=== PATIENT | male | born 1990 | race Caucasian/White ===

== ENCOUNTER 2017-06-23 10:14 | Emergency (ER) | payer MEDICAID ==
[~2017-06-23] VITALS: Ht 175.3 cm; Wt 120.0 kg
[~2017-06-23 10:14] MED LIST: ARIP5TAB6 PO; FLUO20CA19; LITH300C
[2017-06-23] MEDS ORDERED: SODIUM CHLORIDE 0.9% 1,000ML IVBOLUS ONE ×2 (10:30→22:30)
[2017-06-23 10:53] LABS: ASPARTATE AMINO TRANSFERASE 26 U/L (15-37); BLOOD UREA NITROGEN 14 mg/dL (7-18)
[2017-06-23 11:00] LABS: ACETAMINOPHEN < 2 mcg/mL (10-30)
[2017-06-23 12:06] LABS: DAU SCREEN DISCLAIMER
[2017-06-23] MEDS ORDERED: ARIP10TA13 PO (13:17)
[2017-06-23] MEDS ORDERED: LITH450T PO (13:17)
[2017-06-23] MEDS ORDERED: ZIPRASIDONE 20 MG INJ IM ONE (14:00)
[2017-06-23] MEDS ORDERED: LORazepam 1MG TABLET PO PRN (18:00)
[2017-06-23] MEDS ORDERED: OLANZAPINE 10 MG INJ IM PRN (18:00)
[2017-06-23] MEDS ORDERED: LORazepam 2 MG/ML, 1ML IM PRN (18:00)
[2017-06-23] MEDS ORDERED: LORazepam 1MG TABLET ONE (18:14)
[2017-06-23] MEDS ORDERED: LORazepam 0.5MG TABLET ONE (20:30)
[2017-06-23] MEDS ORDERED: ZIPRASIDONE 20MG CAPSULE ONE (20:30)
[2017-06-23] MEDS: ZIPRASIDONE 20MG CAPSULE PO SCH (20:33)
[2017-06-23] MEDS: LORazepam 0.5MG TABLET PO SCH (20:33)
[2017-06-23] MEDS ORDERED: LORazepam 2 MG/ML, 1ML IVPush ONE (22:30)
[2017-06-23] MEDS ORDERED: LORazepam 2 MG/ML, 1ML ONE (23:27)
[2017-06-24 00:11] VITALS: BP 164/99
[2017-06-24] MEDS ORDERED: LITHIUM CARBONATE 300 MG CAPSULE PO ONE (09:00)
[2017-06-24] MEDS: LORazepam 0.5MG TABLET PO SCH (09:36)
[2017-06-24] MEDS: ZIPRASIDONE 20MG CAPSULE PO SCH (09:36)
[2017-06-24] MEDS ORDERED: ZIPRASIDONE 20MG CAPSULE ONE (09:39)
[2017-06-24] MEDS ORDERED: LORazepam 0.5MG TABLET ONE (09:39)
[2017-06-25] MEDS ORDERED: LITHIUM CARBONATE 300 MG CAPSULE PO SCH (09:00)
[2017-06-26] MEDS ORDERED: LITHIUM CARBONATE 300 MG CAPSULE PO SCH (09:00)
== END 2017-06-24 16:42 ==
LOC: ED 14:40
DX: F23 Brief psychotic disorder (principal); F12.10 Cannabis abuse, uncomplicated; F13.10 Sedative, hypnotic or anxiolytic abuse, uncomplicated; F31.9 Bipolar disorder, unspecified; I10 Essential (primary) hypertension; F17.210 Nicotine dependence, cigarettes, uncomplicated
CPT/HCPCS: 36415; 80053; 80178; 80307; 80329; 85025; 96361; 96372; 96374; 99285; J2060; J3486; J7030; G0480

== ENCOUNTER 2017-10-01 23:30 | Emergency (ER) | payer MEDICAID ==
[~2017-10-01] VITALS: Ht 175.3 cm; Wt 135.9 kg
[~2017-10-01 23:30] MED LIST changes: +ARIP10TA33 PO; +ARIP5TAB13 PO; -ARIP5TAB6 PO; +LITH450T PO
[2017-10-01] MEDS ORDERED: LORazepam 1MG TABLET ONE (23:54)
[2017-10-02] MEDS ORDERED: LORazepam 1MG TABLET PO ONE
[2017-10-02 00:08] LABS: DAU SCREEN DISCLAIMER
[2017-10-02 00:11] LABS: HEMATOCRIT 40.9 % (39.2-51.8); HEMOGLOBIN 14.1 g/dL (13.7-18.0); WHITE BLOOD COUNT 12.2 x10^3/uL (3.4-10)
[2017-10-02 00:23] LABS: BLOOD UREA NITROGEN 24 mg/dL (7-18)
[2017-10-02 00:26] LABS: ACETAMINOPHEN < 2 mcg/mL (10-30); ASPARTATE AMINO TRANSFERASE 36 U/L (15-37)
[2017-10-02 02:23] VITALS: BP 129/79
== END 2017-10-02 03:07 | disposition home or self-care (01) ==
LOC: ED 10-02 03:00
DX: F31.9 Bipolar disorder, unspecified (principal); I10 Essential (primary) hypertension; F10.239 Alcohol dependence with withdrawal, unspecified; F43.10 Post-traumatic stress disorder, unspecified; F15.10 Other stimulant abuse, uncomplicated; F17.200 Nicotine dependence, unspecified, uncomplicated
CPT/HCPCS: 36415; 80053; 80307; 80329; 85025; 99284; G0479; G0480

== ENCOUNTER 2018-01-02 21:05 | Emergency (ER) | payer MEDICAID, OTHER ==
[~2018-01-02] VITALS: Ht 175.3 cm; Wt 132.0 kg
[2018-01-02] MEDS ORDERED: DIPH,PERTUSS(ACELL),TET VAC/PF 0.5 ML IM-VACC ONE ×2 (21:44→22:00)
[2018-01-02] MEDS ORDERED: LIDOCAINE 1%, 20ML ONE (21:46)
[2018-01-02] MEDS ORDERED: LIDOCAINE-MPF 1%, 5ML INFIL ONE (22:00)
[2018-01-02] MEDS ORDERED: BACITRACIN ZINC OINT 500U/GM, 0.9 GM ONE (23:18)
[2018-01-02 23:51] VITALS: BP 151/96
== END 2018-01-03 00:02 | disposition home or self-care (01) ==
LOC: ED 23:56
DX: S06.0X0A Concussion without loss of consciousness, initial encounter (principal); I10 Essential (primary) hypertension; F43.10 Post-traumatic stress disorder, unspecified; Y00.XXXA Assault by blunt object, initial encounter; Y93.89 Activity, other specified; Y99.8 Other external cause status; Y92.89 Other specified places as the place of occurrence of the external cause
CPT/HCPCS: 12031; 70450; 90471; 90715

== ENCOUNTER 2018-01-13 14:54 | Emergency (ER) | payer MEDICAID, OTHER ==
[~2018-01-13] VITALS: Ht 175.3 cm; Wt 127.8 kg
[2018-01-13 14:58] VITALS: BP 205/140
== END 2018-01-13 15:21 | disposition home or self-care (01) ==
LOC: ED 15:10
DX: S01.01XD Laceration without foreign body of scalp, subsequent encounter (principal); I10 Essential (primary) hypertension; F15.10 Other stimulant abuse, uncomplicated; F31.9 Bipolar disorder, unspecified
CPT/HCPCS: 99283

== ENCOUNTER 2018-04-02 18:28 | Observation (INO) | payer MEDICAID ==
[~2018-04-02] VITALS: Ht 175.3 cm; Wt 132.0 kg
[2018-04-02] MEDS ORDERED: LORazepam 1MG TABLET PO ONE (19:00)
[2018-04-02] MEDS ORDERED: LORazepam 1MG TABLET ONE (19:03)
[2018-04-02 19:25] LABS: BASOPHILS % (AUTO) 0 % (0-1); EOSINOPHILS # (AUTO) 0.09 x10^3/uL (0-0.4); EOSINOPHILS % (AUTO) 1 % (1-7); LYMPHOCYTES # (AUTO) 1.96 x10^3/uL (1-3.4); LYMPHOCYTES % (AUTO) 20 % (22-44); MD NO; MEAN CORPUSCULAR HEMOGLOBIN 30.2 pg (27.5-34.5); MEAN CORPUSCULAR HGB CONC 34.5 g/dL (33.2-36.2); MEAN CORPUSCULAR VOLUME 87.5 fL (81-97); MEAN PLATELET VOLUME 8.3 fL (7.4-10.4); MONOCYTES # (AUTO) 0.45 x10^3/uL (0.2-0.8); MONOCYTES % (AUTO) 5 % (2-9); NEUTROPHILS # (AUTO) 7.34 x10^3/uL (1.8-6.8); NEUTROPHILS % (AUTO) 75 % (42-75); PLATELET COUNT 288 x10^3/uL (130-400); RED BLOOD COUNT 4.97 x10^6/uL (4.38-5.82); RED CELL DISTRIBUTION WIDTH 14.1 % (9.4-14.8)
[2018-04-02 19:36] LABS: ALANINE AMINOTRANSFERASE 46 U/L (12-78); ALBUMIN 4.3 g/dL (3.4-5.0); ANION GAP 6 mmol/L (5-15); CALCIUM 8.6 mg/dL (8.5-10.1); CHLORIDE 107 mmol/L (98-107); CREATININE 1.03 mg/dL (0.7-1.3); SALICYLATE LEVEL 2.5 mg/dL (2.8-20.0)
[2018-04-02 19:38] LABS: ALKALINE PHOSPHATASE 91 U/L (45-117); BILIRUBIN,TOTAL 0.3 mg/dL (0.2-1.0); TOTAL PROTEIN 8.1 g/dL (6.4-8.2)
[2018-04-02 19:39] LABS: AMPHETAMINE SCREEN, URINE Negative (Negative); BARBITURATE SCREEN, URINE Negative (Negative); BENZODIAZEPINE SCREEN, URINE Negative (Negative); CANNABINOID SCREEN, URINE Positive (Negative); COCAINE SCREEN, URINE Negative (Negative); METHADONE SCREEN, URINE Negative (Negative); OPIATE SCREEN, URINE Negative (Negative)
[2018-04-02 19:40] LABS: ACETAMINOPHEN < 2 mcg/mL (10-30)
[2018-04-02] MEDS ORDERED: ZIPRASIDONE 20 MG INJ IM ONE ×2 (20:30→20:38)
[2018-04-02] MEDS ORDERED: PRAZ1CAP2 PO (20:36)
[2018-04-03] MEDS ORDERED: NICOTINE 7 MG/24 HR PATCH.TD24 ONE (00:19)
[2018-04-03] MEDS ORDERED: ACETAMINOPHEN 325 MG TABLET PO PRN (00:30)
[2018-04-03] MEDS ORDERED: ONDANSETRON ODT 4 MG PO PRN (00:30)
[2018-04-03] MEDS ORDERED: BISACODYL 10 MG SUPP PR PRN (00:30)
[2018-04-03] MEDS: PRAZOSIN 1 MG CAPSULE PO SCH ×2 (00:30→22:52)
[2018-04-03] MEDS ORDERED: LITHIUM CARBONATE 300 MG CAPSULE PO SCH ×2 (00:30→11:00)
[2018-04-03] MEDS: NICOTINE 7 MG/24 HR PATCH.TD24 TD SCH ×2 (00:30→22:52)
[2018-04-03] MEDS ORDERED: POLYETHYLENE GLYCOL 17 GM PACKET PO PRN (00:30)
[2018-04-03] MEDS: LITHIUM CARBONATE 300 MG TABLET.ER PO SCH ×2 (00:31→21:00)
[2018-04-03] MEDS ORDERED: ARIPIPRAZOLE 10 MG TABLET ONE (08:55)
[2018-04-03] MEDS ORDERED: SENNA/DOCUSATE TABLET ONE (08:56)
[2018-04-03] MEDS: ARIPIPRAZOLE 10 MG TABLET PO SCH (09:01)
[2018-04-03] MEDS: SENNA/DOCUSATE TABLET PO SCH (09:02)
[2018-04-04] MEDS: LITHIUM CARBONATE 300 MG TABLET.ER PO SCH ×2 (03:41→20:57)
[2018-04-04] MEDS ORDERED: LORazepam 1MG TABLET ONE (05:41)
[2018-04-04] MEDS ORDERED: LORazepam 1MG TABLET PO ONE (06:00)
[2018-04-04] MEDS ORDERED: ARIPIPRAZOLE 10 MG TABLET ONE (08:19)
[2018-04-04] MEDS: ARIPIPRAZOLE 10 MG TABLET PO SCH (08:27)
[2018-04-04] MEDS: SENNA/DOCUSATE TABLET PO SCH (08:27)
[2018-04-04] MEDS ORDERED: NICOTINE 7 MG/24 HR PATCH.TD24 TD SCH (16:00)
[2018-04-04] MEDS ORDERED: ZIPRASIDONE 20 MG INJ IM PRN (16:00)
[2018-04-04 16:21] VITALS: BP 162/112
[2018-04-04 16:49] VITALS: BP 162/121
[2018-04-04] MEDS: NICOTINE GUM 2 MG BC PRN (18:35)
[2018-04-04 20:36] VITALS: BP 146/93
[2018-04-04] MEDS: PRAZOSIN 1 MG CAPSULE PO SCH (20:55)
[2018-04-05 07:59] VITALS: BP 155/98
[2018-04-05] MEDS ORDERED: AMLODIPINE 2.5 MG TABLET PO SCH (09:00)
[2018-04-05] MEDS: SENNA/DOCUSATE TABLET PO SCH (09:00)
[2018-04-05] MEDS: ARIPIPRAZOLE 10 MG TABLET PO SCH (10:24)
[2018-04-05] MEDS: NICOTINE GUM 2 MG BC PRN (12:47)
[2018-04-05] MEDS ORDERED: AMLO5TAB2 PO (17:41)
[2018-04-05 19:56] VITALS: BP 144/95
== END 2018-04-05 21:00 ==
LOC: ED 22:05 → EDIP 04-03 00:13 → 3E 04-04 16:13
PROVIDERS: ADMIT Hospitalist; ATTEND Hospitalist
DX: R45.851 Suicidal ideations (principal); R45.850 Homicidal ideations; I10 Essential (primary) hypertension; E66.9 Obesity, unspecified; F12.90 Cannabis use, unspecified, uncomplicated; F17.210 Nicotine dependence, cigarettes, uncomplicated; F31.9 Bipolar disorder, unspecified
CPT/HCPCS: 36415; 80053; 80178; 80307; 80329; 85025; 96372; 99285; G0378; J3486; G0480

== ENCOUNTER 2018-07-18 20:27 | Observation (INO) | payer MEDICAID ==
[~2018-07-18] VITALS: Ht 175.3 cm; Wt 135.4 kg
[~2018-07-18 20:27] MED LIST changes: +AMLO5TAB2 PO; +PRAZ1CAP2 PO
[2018-07-18 21:01] LABS: BASOPHILS # (AUTO) 0.02 x10^3/uL (0-0.1); BASOPHILS % (AUTO) 0 % (0-1); EOSINOPHILS # (AUTO) 0.11 x10^3/uL (0-0.4); EOSINOPHILS % (AUTO) 1 % (1-7); LYMPHOCYTES # (AUTO) 2.72 x10^3/uL (1-3.4); LYMPHOCYTES % (AUTO) 23 % (22-44); MD NO; MEAN CORPUSCULAR HGB CONC 34.6 g/dL (33.2-36.2); MEAN CORPUSCULAR VOLUME 86.8 fL (81-97); MEAN PLATELET VOLUME 8.4 fL (7.4-10.4); MONOCYTES % (AUTO) 5 % (2-9); NEUTROPHILS # (AUTO) 8.47 x10^3/uL (1.8-6.8); NEUTROPHILS % (AUTO) 71 % (42-75); PLATELET COUNT 268 x10^3/uL (130-400); RED BLOOD COUNT 5.02 x10^6/uL (4.38-5.82); RED CELL DISTRIBUTION WIDTH 13.5 % (9.4-14.8)
[2018-07-18 21:09] LABS: ALBUMIN 4.1 g/dL (3.4-5.0); ANION GAP 4 mmol/L (5-15); CALCIUM 8.8 mg/dL (8.5-10.1); CHLORIDE 105 mmol/L (98-107); SALICYLATE LEVEL 2.7 mg/dL (2.8-20.0)
[2018-07-18 21:11] LABS: ALANINE AMINOTRANSFERASE 45 U/L (12-78); ALKALINE PHOSPHATASE 105 U/L (45-117); BILIRUBIN,TOTAL 0.2 mg/dL (0.2-1.0); CREATININE 1.02 mg/dL (0.7-1.3); TOTAL PROTEIN 8.1 g/dL (6.4-8.2)
[2018-07-18 21:16] LABS: ACETAMINOPHEN < 2 mcg/mL (10-30)
[2018-07-18 22:33] LABS: AMPHETAMINE SCREEN, URINE Negative (Negative); BARBITURATE SCREEN, URINE Negative (Negative); BENZODIAZEPINE SCREEN, URINE Negative (Negative); CANNABINOID SCREEN, URINE Positive (Negative); COCAINE SCREEN, URINE Negative (Negative); METHADONE SCREEN, URINE Negative (Negative); OPIATE SCREEN, URINE Negative (Negative)
[2018-07-18] MEDS ORDERED: NICOTINE 7 MG/24 HR PATCH.TD24 TD SCH (23:00)
[2018-07-18] MEDS ORDERED: LORazepam 1MG TABLET PO PRN (23:00)
[2018-07-18] MEDS ORDERED: ACETAMINOPHEN 325 MG TABLET PO PRN (23:00)
[2018-07-19] MEDS ORDERED: niFEDipine ER 30 MG TABLET.ER PO STA (01:33)
[2018-07-19 01:35] VITALS: BP 179/130
[2018-07-19 02:33] VITALS: BP 161/101
[2018-07-19] MEDS ORDERED: PRAZOSIN 2 MG CAPSULE ONE (02:46)
[2018-07-19 07:10] VITALS: BP 131/86
[2018-07-19] MEDS ORDERED: CALCIUM CARBONATE 500 MG TAB.CHEW PO PRN (08:30)
[2018-07-19] MEDS ORDERED: DIPHENHYDRAMINE 25 MG CAPSULE PO PRN (08:30)
[2018-07-19] MEDS ORDERED: ARIPIPRAZOLE 10 MG TABLET PO SCH (09:00)
[2018-07-19] MEDS ORDERED: AMLODIPINE 5 MG TABLET PO SCH (09:00)
[2018-07-19] MEDS ORDERED: PRAZOSIN 2 MG CAPSULE PO SCH (21:00)
[2018-07-19] MEDS ORDERED: LITHIUM CARBONATE 300 MG TABLET.ER PO SCH (21:00)
== END 2018-07-19 15:21 ==
LOC: ED 21:30 → EDIP 23:02 → 2N 07-19 01:28
PROVIDERS: ADMIT Internal Medicine; ATTEND Internal Medicine
DX: R45.851 Suicidal ideations (principal); R45.850 Homicidal ideations; F31.9 Bipolar disorder, unspecified; I10 Essential (primary) hypertension; D72.829 Elevated white blood cell count, unspecified; F12.90 Cannabis use, unspecified, uncomplicated; F17.210 Nicotine dependence, cigarettes, uncomplicated; Z91.5 Personal history of self-harm; Z79.899 Other long term (current) drug therapy
CPT/HCPCS: 36415; 80053; 80307; 80329; 85025; 99285; G0378; G0480

== ENCOUNTER 2018-08-20 16:12 | Emergency (ER) | payer MEDICAID ==
[~2018-08-20] VITALS: Ht 175.3 cm; Wt 133.0 kg
[~2018-08-20 16:12] MED LIST changes: -AMLO5TAB2 PO; +AMLO5TAB7 PO
[2018-08-20 16:17] VITALS: BP 156/89
== END 2018-08-20 16:59 | disposition home or self-care (01) ==
LOC: ED 16:25
DX: F15.129 Other stimulant abuse with intoxication, unspecified (principal); F15.120 Other stimulant abuse with intoxication, uncomplicated; F15.180 Other stimulant abuse with stimulant-induced anxiety disorder; F17.210 Nicotine dependence, cigarettes, uncomplicated; F31.9 Bipolar disorder, unspecified; I10 Essential (primary) hypertension
CPT/HCPCS: 99281

== ENCOUNTER 2019-02-06 23:48 | Emergency (ER) | payer MEDICAID ==
[~2019-02-06] VITALS: Ht 177.8 cm; Wt 125.0 kg
[~2019-02-06 23:48] MED LIST changes: +AMLO-150 PO; -AMLO5TAB7 PO
[2019-02-07 00:14] LABS: BASOPHILS # (AUTO) 0.03 x10^3/uL (0-0.1); BASOPHILS % (AUTO) 0 % (0-1); EOSINOPHILS # (AUTO) 0.06 x10^3/uL (0-0.4); EOSINOPHILS % (AUTO) 1 % (1-7); LYMPHOCYTES % (AUTO) 24 % (22-44); MD NO; MEAN CORPUSCULAR HEMOGLOBIN 30.5 pg (27.5-34.5); MEAN CORPUSCULAR HGB CONC 34.1 g/dL (33.2-36.2); MEAN CORPUSCULAR VOLUME 89.5 fL (81-97); MONOCYTES # (AUTO) 0.47 x10^3/uL (0.2-0.8); MONOCYTES % (AUTO) 6 % (2-9); NEUTROPHILS # (AUTO) 5.73 x10^3/uL (1.8-6.8); NEUTROPHILS % (AUTO) 69 % (42-75); PLATELET COUNT 269 x10^3/uL (130-400); RED BLOOD COUNT 4.67 x10^6/uL (4.38-5.82); RED CELL DISTRIBUTION WIDTH 14.3 % (9.4-14.8)
[2019-02-07 00:20] LABS: ALANINE AMINOTRANSFERASE 28 U/L (12-78); ALBUMIN 4.8 g/dL (3.4-5.0); ANION GAP 5 mmol/L (5-15); CALCIUM 8.9 mg/dL (8.5-10.1); CHLORIDE 109 mmol/L (98-107); CREATININE 0.96 mg/dL (0.7-1.3); SALICYLATE LEVEL 3.3 mg/dL (2.8-20.0)
[2019-02-07 00:22] LABS: ALKALINE PHOSPHATASE 131 U/L (45-117); BILIRUBIN,TOTAL 0.4 mg/dL (0.2-1.0); TOTAL PROTEIN 8.1 g/dL (6.4-8.2)
[2019-02-07 00:25] LABS: ACETAMINOPHEN < 2 mcg/mL (10-30)
--- NOTE | 2019-02-07 00:30 | NUR ---
pt resting on gurney. rr even and unlabored. pt states that he is very depressed and having suicidal thoughts due to being in [place] years ago. pt states that he would shot himself and has access to guns. pt is calm and cooperative att. belongings secured in locker. room secured with sitter outside of room for safety.
[2019-02-07 01:00] LABS: AMPHETAMINE SCREEN, URINE Positive (Negative); BARBITURATE SCREEN, URINE Negative (Negative); BENZODIAZEPINE SCREEN, URINE Negative (Negative); CANNABINOID SCREEN, URINE Positive (Negative); COCAINE SCREEN, URINE Negative (Negative); METHADONE SCREEN, URINE Negative (Negative); OPIATE SCREEN, URINE Negative (Negative)
--- NOTE | 2019-02-07 01:05 | NUR ---
CALLED [facility] AND GAVE THEM INFO
--- NOTE | 2019-02-07 01:15 | NUR ---
Report rec at this time, awaiting [facility] for eval, pt is pleasant and cooperative.
[2019-02-07 01:43] VITALS: BP 138/91
--- NOTE | 2019-02-07 01:43 | NUR ---
PLEASANT YOUNG MAN WHO STATES THAT SINCE HE HAS LEFT THE HE HAS JUST NOT BEEN RIGHT. PT AWARE THAT HE IS POSITIVE FOR METH, DISCUSSION WITH PT REGARDING HOW UNHEALTHLY THIS IS FOR HIM, ESPECIALLY IN HIS PRESENT EMOTIONAL SITUATION.
--- NOTE | 2019-02-07 01:52 | NUR ---
[facility] at bedside for assessment.
--- NOTE | 2019-02-07 02:31 | NUR ---
PT VERY UPSET WITH DISCHARGE PLAN, PT ENCOURAGED TO PLEASE TAKE HIS MEDICATIONS AND TO SEEK FOLLOW-UP HAS BEEN DIRECTED. PT STATES THAT 'I GUESS YOU GUYS ONLY TREAT WHITE PEOPLE', PT AWARE THAT THIS IS NOT THE CASE, PT AGAIN ENCOURAGED TO PLEASE TAKE HIS MEDICATIONS AND FOLLOW-UP TO SEEK HELP AND TO AVOID DRUGS AND ETOH HE IS A VERY NICE YOUNG MAN WHO DESERVES TO HAVE A GOOD LIFE. SEVERAL OFFERS OF CAB VOUCHERS IT IS RAINING AND PT REFUSING.
== END 2019-02-07 02:46 | disposition home or self-care (01) ==
LOC: ED 02-07 02:40
DX: F43.12 Post-traumatic stress disorder, chronic (principal); F10.129 Alcohol abuse with intoxication, unspecified; F15.129 Other stimulant abuse with intoxication, unspecified
CPT/HCPCS: 36415; 80053; 80307; 80329; 85025; 99284; G0480

== ENCOUNTER 2019-03-23 01:34 | Emergency (ER) | payer MEDICAID ==
[~2019-03-23] VITALS: Ht 175.3 cm; Wt 119.7 kg
--- NOTE | 2019-03-23 01:59 | NUR ---
PT HAS NUMEROUS RED CIRCULAR LESIONS TO RIGHT SIDE OF ABDOMEN WHICH STARTED ON THE March. NO DRAINAGE FROM LESIONS. SOME OF THE LESIONS HAVE A WHITE OR BLACK HEAD TO THEM. PT SAYS THEY ITCH AND ARE PAINFUL.
[2019-03-23] MEDS ORDERED: hydrOXyzine 50MG TABLET ONE (02:08)
[2019-03-23] MEDS ORDERED: FAMOTIDINE 20 MG TABLET ONE (02:08)
--- NOTE | 2019-03-23 02:12 | NUR ---
PT MEDICATED PER EMAR. TOLERATED WELL.
[2019-03-23] MEDS ORDERED: hydrOXyzine 50MG TABLET PO ONE (02:30)
[2019-03-23] MEDS ORDERED: FAMOTIDINE 20 MG TABLET PO ONE (02:30)
[2019-03-23 03:03] VITALS: BP 133/77
== END 2019-03-23 03:05 | disposition home or self-care (01) ==
LOC: ED 02:54
DX: L73.9 Follicular disorder, unspecified (principal); R21 Rash and other nonspecific skin eruption
CPT/HCPCS: 99284; J7512

== ENCOUNTER 2019-04-04 18:10 | Emergency (ER) | payer MEDICAID ==
[~2019-04-04] VITALS: Ht 175.3 cm; Wt 120.5 kg
[2019-04-04 18:35] LABS: BASOPHILS # (AUTO) 0.07 x10^3/uL (0-0.1); BASOPHILS % (AUTO) 1 % (0-1); EOSINOPHILS # (AUTO) 0.09 x10^3/uL (0-0.4); EOSINOPHILS % (AUTO) 1 % (1-7); LYMPHOCYTES # (AUTO) 1.91 x10^3/uL (1-3.4); LYMPHOCYTES % (AUTO) 17 % (22-44); MD NO; MEAN CORPUSCULAR HEMOGLOBIN 30.9 pg (27.5-34.5); MEAN CORPUSCULAR HGB CONC 33.4 g/dL (33.2-36.2); MEAN CORPUSCULAR VOLUME 92.3 fL (81-97); MEAN PLATELET VOLUME 8.1 fL (7.4-10.4); MONOCYTES % (AUTO) 5 % (2-9); NEUTROPHILS # (AUTO) 8.55 x10^3/uL (1.8-6.8); NEUTROPHILS % (AUTO) 77 % (42-75); PLATELET COUNT 280 x10^3/uL (130-400); RED CELL DISTRIBUTION WIDTH 14.5 % (9.4-14.8)
[2019-04-04 18:43] LABS: ALANINE AMINOTRANSFERASE 32 U/L (12-78); ALBUMIN 4.4 g/dL (3.4-5.0); ANION GAP 9 mmol/L (5-15); CHLORIDE 107 mmol/L (98-107); CREATININE 0.95 mg/dL (0.7-1.3); SALICYLATE LEVEL 2.9 mg/dL (2.8-20.0)
[2019-04-04 18:46] LABS: ACETAMINOPHEN < 2 mcg/mL (10-30); ALKALINE PHOSPHATASE 144 U/L (45-117); BILIRUBIN,TOTAL 0.5 mg/dL (0.2-1.0); TOTAL PROTEIN 8.1 g/dL (6.4-8.2)
--- NOTE | 2019-04-04 18:47 | NUR ---
LATE NOTE ENTRY 183: Pt brought in by EMS with c/o "I need help to quit using meth." Pt frederic SI. Pt states, "I want to hurt others." Pt denies any specific person. Pt states last meth use was last night. Pt states he has been off his psych meds for two days. Pt states he is bipolar, has PTSD from time in [place], manic depression, and high blood pressure. Pt is AOX4, has rapid respirations at 20 breaths per min., tachycardia at 108 bpm, and hypertensive at 156/84. Pt denies cp, sob, n/v/d, trauma, syncope, tactile disturbances. CMS in tact. ED room secured for SI/HI. Sitter near doorway in direct line of sight for observation. Pt belongings removed and clothing secured in one bag with pt identifaction tags. Bag is secured in ED locker for safe keeping. Pt had a utility knife. Utility knife has pt identification label on it and was given to security for safe keeping.
[2019-04-04 18:54] LABS: AMPHETAMINE SCREEN, URINE Positive (Negative); BARBITURATE SCREEN, URINE Negative (Negative); BENZODIAZEPINE SCREEN, URINE Negative (Negative); CANNABINOID SCREEN, URINE Positive (Negative); COCAINE SCREEN, URINE Negative (Negative)
[2019-04-04 18:59] LABS: METHADONE SCREEN, URINE Negative (Negative); OPIATE SCREEN, URINE Negative (Negative)
--- NOTE | 2019-04-04 19:06 | NUR ---
Provided bedside report to JIM Terrell. All questions answered. JIM Terrell to assume care of pt.
--- NOTE | 2019-04-04 19:18 | NUR ---
pt sitting up on gurney, denies si/hi thoughts, room secured, garage doors down, refused diet tray or needs at this time, sitter at doorway for continous monitoring
[2019-04-04 19:20] VITALS: BP 143/99
== END 2019-04-04 20:13 | disposition home or self-care (01) ==
LOC: ED 19:30
DX: F33.3 Major depressive disorder, recurrent, severe with psychotic symptoms (principal); F43.12 Post-traumatic stress disorder, chronic; R45.851 Suicidal ideations; F15.129 Other stimulant abuse with intoxication, unspecified; Z72.9 Problem related to lifestyle, unspecified; F17.210 Nicotine dependence, cigarettes, uncomplicated; I10 Essential (primary) hypertension
CPT/HCPCS: 36415; 80053; 80307; 85025; 99284

== ENCOUNTER 2019-09-24 15:52 | Emergency (ER) | payer MEDICAID ==
[~2019-09-24] VITALS: Ht 175.3 cm; Wt 105.9 kg
[2019-09-24] MEDS ORDERED: ACETAMINOPHEN 500 MG TABLET ONE (16:10)
--- NOTE | 2019-09-24 16:12 | NUR ---
Tylenol 1,000mg administered PO x1 now as instructed by Massimo Mccullough; verbal order read back and verified.
[2019-09-24] MEDS ORDERED: SODIUM CHLORIDE 0.9% 1,000ML IVBOLUS ONE (16:30)
[2019-09-24 16:39] LABS: RAPID INFLUENZA A Negative (Negative); RAPID INFLUENZA B Negative (Negative)
[2019-09-24 16:41] LABS: BASOPHILS # (AUTO) 0.01 x10^3/uL (0-0.1); BASOPHILS % (AUTO) 0 % (0-1); EOSINOPHILS % (AUTO) 0 % (1-7); LYMPHOCYTES # (AUTO) 0.63 x10^3/uL (1-3.4); LYMPHOCYTES % (AUTO) 10 % (22-44); MD NO; MEAN CORPUSCULAR HEMOGLOBIN 30.8 pg (27.5-34.5); MEAN CORPUSCULAR HGB CONC 33.4 g/dL (33.2-36.2); MEAN CORPUSCULAR VOLUME 92.1 fL (81-97); MEAN PLATELET VOLUME 7.6 fL (7.4-10.4); MONOCYTES # (AUTO) 0.15 x10^3/uL (0.2-0.8); MONOCYTES % (AUTO) 2 % (2-9); NEUTROPHILS # (AUTO) 5.48 x10^3/uL (1.8-6.8); NEUTROPHILS % (AUTO) 87 % (42-75); PLATELET COUNT 173 x10^3/uL (130-400); RED BLOOD COUNT 4.19 x10^6/uL (4.38-5.82); RED CELL DISTRIBUTION WIDTH 16.2 % (9.4-14.8)
--- NOTE | 2019-09-24 16:43 | NUR ---
IV PLACED, NS BOLUS INFUSING. BC X 1 DRAWN WITH START . PT TO XRAY
[2019-09-24 16:50] LABS: ALBUMIN 3.7 g/dL (3.4-5.0); ANION GAP 7 mmol/L (5-15); CALCIUM 7.6 mg/dL (8.5-10.1); CHLORIDE 102 mmol/L (98-107); CREATININE 1.28 mg/dL (0.7-1.3)
[2019-09-24] MEDS ORDERED: IBUPROFEN 200 MG TABLET ONE (17:27)
[2019-09-24] MEDS ORDERED: DEXAMETHASONE 4 MG TABLET ONE (17:27)
--- NOTE | 2019-09-24 17:39 | NUR ---
MEDS GIVEN PER ERP ORDER. NS BOLUS STOPPED-ARM BENT. IV HANGING HIGH NOW, PT INSTRUCTED TO KEEP ARM STRAIGHT. VS RECHECK, TEMP 103.1. ERP NOTIFIED.
[2019-09-24 17:46] VITALS: BP 106/50
[2019-09-24] MEDS ORDERED: DEXAMETHASONE 4 MG TABLET PO ONE (18:00)
[2019-09-24] MEDS ORDERED: IBUPROFEN 600 MG TABLET PO ONE (18:00)
== END 2019-09-24 18:18 | disposition home or self-care (01) ==
LOC: ED 17:55
DX: B34.9 Viral infection, unspecified (principal); J03.00 Acute streptococcal tonsillitis, unspecified; I10 Essential (primary) hypertension; F31.9 Bipolar disorder, unspecified; F17.200 Nicotine dependence, unspecified, uncomplicated
CPT/HCPCS: 36415; 71046; 80048; 82040; 83605; 85025; 87081; 87400; 87880; 99284; J7030

== ENCOUNTER 2019-12-02 11:52 | Emergency (ER) | payer MEDICAID ==
[~2019-12-02] VITALS: Ht 175.3 cm; Wt 111.0 kg
[2019-12-02 12:11] VITALS: BP 123/71
--- NOTE | 2019-12-02 12:59 | NUR ---
GROUND PRODUCTS DIRECTOR: PT TO ROOM FROM TYRELL YOU
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
--- NOTE | 2019-12-02 13:09 | NUR ---
IVY MOSES AT BEDSIDE.
--- NOTE | 2019-12-02 13:30 | NUR ---
LATE ENTRY D/T PATIENT CARE: PT HAS HX SUICIDAL IDEATION, HOWEVER PT DENIES SI AT THIS TIME. PT DENIES ANY HISTORY OF SUICIDE ATTEMPT. PT IS CALM AND COOPERATIVE.
--- NOTE | 2019-12-02 14:30 | NUR ---
WOUND CARE PROVIDED BY THIS RN, PT DISCHARGED BY TASK JIM KABA.
== END 2019-12-02 15:20 | disposition home or self-care (01) ==
LOC: ED 14:30
DX: L03.011 Cellulitis of right finger (principal); F17.200 Nicotine dependence, unspecified, uncomplicated; I10 Essential (primary) hypertension
CPT/HCPCS: 82962; 99283

== ENCOUNTER 2020-03-21 06:46 | Emergency (ER) | payer MEDICAID ==
[~2020-03-21] VITALS: Ht 177.8 cm; Wt 121.0 kg
--- NOTE | 2020-03-21 07:12 | NUR ---
BILATERAL FEET SOAKED IN WARM BETADINE BATH. TO DRESS AFTER THEN D/C ON PO ABX PER PROVIDER
--- NOTE | 2020-03-21 08:12 | NUR ---
WOUNDS DRESSED WITH ADAPTIC/TELFA DRESSINGS. PROVIDED WITH EXTRA SUPPLIES REVIEWED HOME WOUND CARE/MEDICATION PLAN/SMOKING-METH CESSATION
[2020-03-21 08:13] VITALS: BP 137/71
== END 2020-03-21 08:15 | disposition home or self-care (01) ==
LOC: ED 07:03
DX: L03.116 Cellulitis of left lower limb (principal); L03.115 Cellulitis of right lower limb; F10.10 Alcohol abuse, uncomplicated; F15.10 Other stimulant abuse, uncomplicated; F17.210 Nicotine dependence, cigarettes, uncomplicated; I10 Essential (primary) hypertension; Z72.9 Problem related to lifestyle, unspecified; Y90.0 Blood alcohol level of less than 20 mg/100 ml
CPT/HCPCS: 99283

== ENCOUNTER 2020-08-07 02:28 | Emergency (ER) | payer MEDICAID ==
--- NOTE | 2020-08-07 02:52 | NUR ---
30/M. Pt called EMS. Pt reported to be in parents front yard rolling around. Pt has hx of bipolar. Pt has been out of his prescription medication for 2 days. Pt is manic, talking to himself, fidgeting. Denies hallucinations or SI/HI. 123HR in triage.
[2020-08-07 02:55] VITALS: BP 145/84
[2020-08-07] MEDS ORDERED: LORazepam 1MG TABLET ONE (02:59)
[2020-08-07] MEDS ORDERED: LORazepam 1MG TABLET PO ONE (03:00)
--- NOTE | 2020-08-07 03:01 | NUR ---
Pt states he smokes marijuana every day. Meth use, last used 2 days ago. Smokes cigars. Hx of cocaine use.
== END 2020-08-07 03:17 | disposition home or self-care (01) ==
LOC: ED 02:40
DX: F31.9 Bipolar disorder, unspecified (principal); F17.210 Nicotine dependence, cigarettes, uncomplicated; F12.10 Cannabis abuse, uncomplicated; F15.10 Other stimulant abuse, uncomplicated; Z72.9 Problem related to lifestyle, unspecified; I10 Essential (primary) hypertension
CPT/HCPCS: 99283

== ENCOUNTER 2020-08-21 03:40 | Emergency (ER) | payer MEDICAID ==
[~2020-08-21] VITALS: Ht 175.3 cm; Wt 136.0 kg
[2020-08-21 03:43] VITALS: BP 144/90
--- NOTE | 2020-08-21 03:50 | NUR ---
Pt presents to ed c/o si "i am off my meds." States plan to hang self. C/o si in the past. Pt to secure room. Roller doors in place.
--- NOTE | 2020-08-21 03:53 | NUR ---
Pt report to Loly lerma.
--- NOTE | 2020-08-21 03:57 | NUR ---
dr kaye in to assess pt and pt states that he is not having an emergency crisis and that he would prefer to follow up outpatient for his mental health issues. pt states when he leaves here he is not going to hurt himself and that he will propbably go back to [facility] to utilize resources. pt discharged .
== END 2020-08-21 05:11 | disposition home or self-care (01) ==
LOC: ED 04:30
DX: F31.9 Bipolar disorder, unspecified (principal); I10 Essential (primary) hypertension
CPT/HCPCS: 99281